=== PATIENT | male | born 1995 | race Caucasian/White ===

== ENCOUNTER 2017-05-03 11:05 | Emergency (ER) | payer OTHER ==
[2017-05-03 11:18] VITALS: BP 154/70; PULSE 69; TEMP 98; BMI 29.5
--- NOTE | 2017-05-03 13:05 | PDOC ---
History of Present Illness - General Chief Complaint: Injury Stated Complaint: INJURY Time Seen by Provider: 05/03/17 11:47 History Source: Patient Exam Limitations: No Limitations - History of Present Illness Initial Comments: 05/03/17 12:59 Patient is a 22-year-old male, no significant medical history currently on no medications presents emergency department for left elbow injury. Patient reports playing softball and fell onto elbow now with pain and swelling to left elbow, no deformity. Past Medical History: Denies. Allergies: No known allergies Medications: None Family History: Non-contributory Social History: Denies smoking, alcohol use, or IVDU Review of Systems GENERAL/CONSTITUTIONAL: No fever or chills. No weakness. No weight change. HEAD, EYES, EARS, NOSE AND THROAT: No change in vision. No ear pain or discharge. No sore throat. CARDIOVASCULAR: No chest pain or shortness of breath. RESPIRATORY: No cough, wheezing, or hemoptysis. GASTROINTESTINAL: No nausea, vomiting, diarrhea or constipation. No rectal bleeding. GENITOURINARY: No dysuria, frequency, or change in urination. MUSCULOSKELETAL: No neck or back pain. Left elbow pain and swelling. SKIN : No rash or easy bruising. Physical Exam: GENERAL: The patient is awake, alert, and fully oriented, in no acute distress. EYES: Pupils equal, round and reactive to light, extraocular movements intact, sclera anicteric, conjunctiva clear. ENT: Ears normal, nares patent, oropharynx clear without exudates. Moist mucous membranes. No uvula deviation NECK: Normal range of motion, supple without lymphadenopathy, JVD, or masses. LUNGS: Breath sounds equal, clear to auscultation bilaterally. No wheezes, and no crackles. HEART: Regular rate and rhythm, normal S1 and S2 without murmur, rub or gallop. ABDOMEN: Soft, nontender, normoactive bowel sounds. No guarding, no rebound. No masses. No bruising or abrasions MUSCULOSKELETAL: Decreased range of motion to left elbow with edema, no deformity, no bruising No clubbing or cyanosis. No cords, erythema, or tenderness. No CVA Tenderness with fist. NEUROLOGICAL: Cranial nerves II through XII grossly intact. Normal speech, normal gait. SKIN: Warm, Dry, normal turgor, no rashes or lesions noted. Occurred: reports: just prior to arrival Past History - Past Medical History Allergies/Adverse Reactions: Allergies Allergy/AdvReac Type Severity Reaction Status Date / Time No Known Allergies Allergy Verified 05/03/17 11:18 Home Medications: Ambulatory Orders Oxycodone HCl/Acetaminophen [Percocet 5-325 mg Tablet] 1 - 2 tab PO Q4H #20 tablet MDD 10 05/03/17 Other medical history: denies - Suicide/Smoking/Psychosocial Hx Smoking History: Never smoked Information on smoking cessation initiated: No Hx Alcohol Use: No Drug/Substance Use Hx: No Substance Use Type: None *Physical Exam - Vital Signs Last Vital Signs Temp Pulse Resp BP Pulse Ox 98 F 69 19 154/70 98 05/03/17 11:16 05/03/17 11:16 05/03/17 11:16 05/03/17 11:16 05/03/17 11:16 ED Treatment Course - RADIOLOGY Radiology Studies Ordered: Category Date Time Status ELBOW-LEFT [RAD] Stat Radiology 05/03/17 11:47 Completed - Medications Given in the ED: ED Medications Discontinued Medications Generic Name Dose Route Start Last Admin Trade Name Freq PRN Reason Stop Dose Admin Oxycodone/Acetaminophen 1 combo 05/03/17 11:47 05/03/17 11:50 Percocet 5/325 - PO 05/03/17 11:48 1 combo ONCE ONE Administration Medical Decision Making - Medical Decision Making 05/03/17 18:20 A/P: Patient here for evaluation of left elbow injury, Percocet given patient's level of pain is 10 out of 10. X-ray demonstrated no acute fracture however based upon patient's clinical presentation of edema with decreased ability to move I called orthopedics for them to assess x-ray. Sonido from Dr. Malave office states that there may be a small chip fracture recommended arm sling with strict follow-up with orthopedics Arm sling placed on, patient given prescription for Percocet, to follow-up with orthopedics in the next 24-48 hours. I discussed the physical exam findings, ancillary test results and final diagnoses with the patient. I answered all of the patient's questions. The patient was satisfied with the care received and felt comfortable with the discharge plan and treatment plan. The patient will call to arrange follow-up and will return to the Emergency Department with any new, persistent or worsening symptoms. *DC/Admit/Observation/Transfer Diagnosis at time of Disposition: Elbow fracture, left Qualifiers: Encounter type: initial encounter Fracture type: closed Qualified Code(s): S42.402A - Unspecified fracture of lower end of left humerus, initial encounter for closed fracture - Discharge Dispostion Disposition: HOME Condition at time of disposition: Good Admit: No - Prescriptions Prescriptions: Oxycodone HCl/Acetaminophen [Percocet 5-325 mg Tablet] 1 - 2 tab PO Q4H #20 tablet MDD 10 - Referrals Referrals: Christian Malave MD [Staff Physician] - - Patient Instructions Printed Discharge Instructions: How to Use a Sling Additional Instructions: 1. Please return to the emergency department with any redness, swelling, increased pain, or any other concerns. 2. Keep arm sling on 3. Please follow up in the office of Dr. Malave within a week if pain persists. 4. No weightbearing, may move lightly 5. Ice and elevate when at rest. 6. Motrin for minor pain - Post Discharge Activity Forms/Work/School Notes: Back to Work
== END 2017-05-03 13:23 | disposition home or self-care (01) ==
LOC: JERFT 11:05
DX: S42.402A Unspecified fracture of lower end of left humerus, initial encounter for closed fracture (principal); W18.39XA Other fall on same level, initial encounter; Y93.64 Activity, baseball; Y92.320 Baseball field as the place of occurrence of the external cause; Y99.8 Other external cause status
CPT/HCPCS: 73070-TC-LT; 99281-25

== ENCOUNTER 2020-04-08 00:55 | Emergency (ER) | payer OTHER ==
--- OUTSIDE RECORDS SUMMARY | 2020-04-08 01:05 | XMS ---
:1995 Author Organization [facility] Support Name Relationship Address Phone [employer] Unavailable [address] [place] [address] WIL RICHARDS MOTHER [address] [place] [address] Re-disclosure Warning The records that you are about to access may contain information from federally- assisted alcohol or drug abuse programs. If such information is present, then the following federally mandated warning applies: This information has been disclosed to you from records protected by federal confidentiality rules (42 CFR part 2). The federal rules prohibit you from making any further disclosure of this information unless further disclosure is expressly permitted by the written consent of the person to whom it pertains or as otherwise permitted by 42 CFR part 2. A general authorization for the release of medical or other information is NOT sufficient for this purpose. The Federal rules restrict any use of the information to criminally investigate or prosecute any alcohol or drug abuse patient.The records that you are about to access may contain highly sensitive health information, the redisclosure of which is protected by Article 27-F of the [facility] Public Health law. If you continue you may haveaccess to information: Regarding HIV / AIDS; Provided by facilities licensed or operated by the [facility] Office of Mental Health; or Provided by the [facility] Office for People With Developmental Disabilities. If such information is present, then the following [facility] mandated warning applies: This information has been disclosed to you from confidential records which are protected by state law. State law prohibits you from making any further disclosure of this information without the specific written consent of the person to whom it pertains, or as otherwise permitted by law. Any unauthorized further disclosure in violation of state law may result in a fine or senior living sentence or both. A general authorization for the release of medical or other information is NOT sufficient authorization for further disclosure. Insurance Providers Payer name Policy type Policy ID Covered Covered constitution party's Policy P aaron / Coverage constitution party ID relationship to Trinh Inf ormation type trinh YURIY [id number] [facility] CAP
--- NOTE | 2020-04-08 01:28 | PDOC ---
History of Present Illness - General Chief Complaint: Injury Stated Complaint: R ANKLE INJURY Time Seen by Provider: 04/08/20 01:27 History Source: Patient Exam Limitations: No Limitations - History of Present Illness Initial Comments: 04/08/20 01:58 25M with no PMH presents to the ED after mechanical injury while playing soccer. He described it as rolling on lateral aspect of foot. Immediately after was unable to bear weight with subsequent swelling. Denied any other injury, laceration or hitting his head. No other complaints. PMH: as in HPI SH: see below Meds: none Allergies: NKDA Tob/Etoh/Rec drugs: denies x3 ROS GENERAL/CONSTITUTIONAL: No fever or chills. No weakness. HEENT: No change in vision. No ear pain or discharge. No sore throat. CARDIOVASCULAR: No chest pain or shortness of breath RESPIRATORY: No cough, wheezing, or hemoptysis. GASTROINTESTINAL: No nausea, vomiting, diarrhea or constipation. GENITOURINARY: No dysuria, frequency, or change in urination. MUSCULOSKELETAL: Right ankle pain and swelling SKIN: No rash NEUROLOGIC: No headache, vertigo, loss of consciousness, or change in strength/sensation. ENDOCRINE: No increased thirst. No abnormal weight change HEMATOLOGIC/LYMPHATIC: No anemia, easy bleeding, or history of blood clots. ALLERGIC/IMMUNOLOGIC: No hives or skin allergy. PE GENERAL: Awake, alert, and fully oriented; no acute distress HEAD: No signs of trauma, normocephalic, atraumatic EYES: PERRLA, EOMI, sclera anicteric, conjunctiva clear ENT: Auricles normal inspection, hearing grossly normal, nares patent, moist mucosa, oropharynx clear without exudates. NECK: Normal ROM, supple, no LAD, JVD, or masses HEART: Regular rate and rhythm, normal S1/S2, no murmurs, rubs or gallops, peripheral pulses normal and equal bilaterally. LUNGS: No distress, speaks full sentences, clear to auscultation bilaterally ABDOMEN: Soft, nontender. No guarding, no rebound. No masses EXTREMITIES: Right foot lateral tenderness and swelling w/o bruising, no tenderness superior/posterior to medial or lateral malleolus, no navicular/midfoot tenderness, no tenderness at base of 5th metatarsal NEUROLOGICAL: CNII-XII grossly intact. Normal speech, no focal sensorimotor deficits SKIN: Warm, Dry, normal turgor, no rashes or lesions noted Assessment and Plan 1. eval for midfoot/ankle fracture Juanpablo Alfred, PGY1 Emergency Medicine Past History - Medical History Allergies/Adverse Reactions: Allergies Allergy/AdvReac Type Severity Reaction Status Date / Time No Known Allergies Allergy Verified 04/08/20 01:24 Home Medications: Ambulatory Orders Oxycodone HCl/Acetaminophen [Percocet 5-325 mg Tablet] 1 - 2 tab PO Q4H #20 tablet MDD 10 05/03/17 - Psycho-Social/Smoking History Smoking History: Never smoked Information on smoking cessation initiated: No - Substance Abuse Hx (Audit-C & DAST Scrn) How often the patient has a drink containing alcohol: Never Score: In Men: 4 or > Positive; In Women: 3 or > Positive: 0 Screen Result (Pos requires Nsg. Audit-10AR): Negative In the last yr the pt used illegal drug/Rx for NonMed reason: No Score: Yes response is considered Positive: 0 Screen Result (Positive result requires Nsg. DAST-10): Negative *Physical Exam - Vital Signs Last Vital Signs Temp Pulse Resp BP Pulse Ox 99.7 F H 108 H 20 142/71 98 04/08/20 01:21 04/08/20 01:21 04/08/20 01:21 04/08/20 01:21 04/08/20 01:21 Medical Decision Making - Medical Decision Making 04/08/20 02:04 25M with no PMH presents to the ED after mechanical injury while playing soccer. Unable to bear weight. Swelling and tenderness to lateral right foot/ankle (ATF area). -> will get right foot/ankle xray. Given 600mg ibuprofen. 04/08/20 03:09 Xrays do not demonstrate evidence of acute fracture. Likely ATF sprain. Ankle/foot wrapped in shira bandage. Discharge - Discharge Information Problems reviewed: Yes Clinical Impression/Diagnosis: Right foot sprain Qualifiers: Encounter type: initial encounter Qualified Code(s): S93.601A - Unspecified sprain of right foot, initial encounter Condition: Stable - Admission No - Follow up/Referral Referrals: Lam Dodd MD [Primary Care Provider] - - Patient Discharge Instructions Patient Printed Discharge Instructions: DI for Ankle Sprain, DI for Foot Sprain Additional Instructions: You were seen in the ED for right foot/ankle injury. In the ED you were evaluated with xray, which was normal. There does not appear to be an acute need for immediate hospitalization. You are advised to follow up with your Primary Care Physician within 1 week. - Post Discharge Activity
[2020-04-08 01:33] VITALS: BP 142/71; PULSE 108; TEMP 99.7; BMI 33.9
[2020-04-08] MEDS ORDERED: IBUPROFEN 600 MG TABLET (FP) PO ONE ×2 (01:47→01:56)
--- NOTE | 2020-04-08 01:58 | PDOC ---
Attending Attestation - Resident Resident Name: Juanpablo Alfred - ED Attending Attestation I have performed the following: I have examined & evaluated the patient, The case was reviewed & discussed with the resident, I agree w/resident's findings & plan - HPI HPI: 04/08/20 02:54 Pt was playing soccer a couple hours ago at 11PM, and inverted his right foot. Now with ankle and dorsal foot swelling Pt injured the sme foot and ankle when he was 12 years old - Physicial Exam PE: 04/08/20 02:55 Agree with resident exam Pt has bilat mal minimal tenderness "feels like a bruise" Pt has top of foot swelling, but no bruising and minimal pain with palpation No pain at the base of the 5th metatarsal 04/08/20 02:59 Pt will have XRAY of foot and ankle - Medical Decision Making 04/08/20 02:59 XRAYs normal Pt can go home with shira wrap 04/08/20 02:59 He is requesting percocet in the ER - which he will get - and he will be sent home with OTC meds Discharge - Discharge Information Problems reviewed: Yes Clinical Impression/Diagnosis: Right foot sprain Qualifiers: Encounter type: initial encounter Qualified Code(s): S93.601A - Unspecified sprain of right foot, initial encounter Condition: Stable - Follow up/Referral Referrals: Lam Dodd MD [Primary Care Provider] - - Patient Discharge Instructions Patient Printed Discharge Instructions: DI for Ankle Sprain, DI for Foot Sprain Additional Instructions: You were seen in the ED for right foot/ankle injury. In the ED you were evaluated with xray, which was normal. There does not appear to be an acute need for immediate hospitalization. You are advised to follow up with your Primary Care Physician within 1 week. - Post Discharge Activity
== END 2020-04-08 03:25 | disposition home or self-care (01) ==
LOC: JER 00:55
DX: S93.601A Unspecified sprain of right foot, initial encounter (principal)
CPT/HCPCS: 73610-TC-RT-FY; 73630-TC-RT-FY; 99284-25

== ENCOUNTER 2021-08-10 00:15 | Emergency (ER) | payer OTHER ==
[2021-08-10 00:28] VITALS: BP 140/89; PULSE 105; TEMP 98.2; BMI 32.5
[2021-08-10] MEDS ORDERED: ACETAMINOPHEN 325 MG TABLET (FP) PO ONE (00:33)
[2021-08-10] MEDS ORDERED: ACETAMINOPHEN 325 MG TABLET (FP) ONE (01:27)
[2021-08-10] MEDS ORDERED: LIDOCAINE HCL 1%, 10 MG/ML (50 mL VIAL) SQ ONE (02:10)
[2021-08-10] MEDS ORDERED: LIDOCAINE HCL 1%, 10 MG/ML (20ML VIAL) ONE (02:12)
== END 2021-08-10 02:35 | disposition home or self-care (01) ==
LOC: JER 00:15
PROC: 3E023GC Introduction of Other Therapeutic Substance into Muscle, Percutaneous Approach (ICD-10-PCS; principal; 2021-08-10)
DX: S62.327A Displaced fracture of shaft of fifth metacarpal bone, left hand, initial encounter for closed fracture (principal); W19.XXXA Unspecified fall, initial encounter
CPT/HCPCS: 73070-TC-RT-FY; 73130-TC-RT-FY; 96372; 99284-25